=== PATIENT | male | born 1955 | race Two or more races ===

== ENCOUNTER 2020-06-13 09:57 | Emergency (ER) | payer OTHER ==
[2020-06-13 10:15] VITALS: BP 147/72; PULSE 77; TEMP 98.4; BMI 24.2
[2020-06-13] MEDS ORDERED: LIDOCAINE 5% TOPICAL PATCH TP ONE (11:34)
[2020-06-13] MEDS ORDERED: KETOROLAC TROMETHAMINE 15 MG/ML VIAL IM ONE (11:34)
== END 2020-06-13 12:13 | disposition home or self-care (01) ==
LOC: JER 09:57
PROC: 3E0233Z Introduction of Anti-inflammatory into Muscle, Percutaneous Approach (ICD-10-PCS; principal; 2020-06-13)
DX: S13.4XXA Sprain of ligaments of cervical spine, initial encounter (principal); M54.41 Lumbago with sciatica, right side
CPT/HCPCS: 72040-TC; 72100-TC-FY; 99284-25